=== PATIENT | male | born 1960 | race Caucasian/White ===

== ENCOUNTER 2017-05-11 04:36 | Emergency (ER) | payer OTHER ==
[2017-05-11] MEDS ORDERED: Morphine 10 MG/ML VIAL ONE ×2 (05:07→07:15)
[2017-05-11 05:30] LABS: #Basophils 0.1 thou/uL (0.0-0.2); #Eosinphils 0.4 thou/uL (0.0-0.7); #Lymphocytes 1.9 thou/uL (1.20-3.40); #Monocytes 0.7 thou/uL (0.11-0.59); #Neutrophils 6.3 thou/uL (1.40-6.50); %Basophils 1.5 % (0.0-1.0); %Eosinophils 4.7 % (0.0-10.0); %Lymphocytes 20.4 % (21.0-51.0); %Monocytes 7.5 % (0.0-10.0); %Neutrophils 65.9 % (42.0-75.0); Hemoglobin 14.6 g/dL (14.0-18.0); Mean Corpuscular HGB CONC 33.3 g/dL (32.0-36.0); Mean Corpuscular Hemoglobin 29.9 pg (27.0-31.0); Mean Corpuscular Volume 89.8 fl (80.0-94.0); Mean Platelet Volume 7.4 fL (7.4-10.4); Platelet Count 242 thou/uL (130-400); White Blood Cell (WBC) Count 9.5 thou/uL (4.8-10.8)
[2017-05-11 06:02] LABS: ALT (SGPT) 14 U/L (8-55); AST (SGOT) 36 U/L (5-34); Albumin 3.8 g/dL (3.5-5.0); Alkaline Phosphatase 42 U/L (40-150); Anion Gap 20 mmol/L (10-20); BUN (Urea Nitrogen) 22 mg/dL (8.4-25.7); Bilirubin, Total 0.5 mg/dL (0.2-1.2); Calc. Creatinine Clearance 0 mL/min (70-130); Calcium 9.3 mg/dL (7.8-10.44); Carbon Dioxide 18 mmol/L (22-29); Chloride 104 mmol/L (98-107); Estimated GFR-MDRD 67; Globulin 3.5 g/dL (2.4-3.5); Glucose 318 mg/dL (70-105); Magnesium 2.1 mg/dL (1.6-2.6); Phosphorus 3.4 mg/dL (2.3-4.7); Potassium 4.7 mmol/L (3.5-5.1); Protein, Total 7.3 g/dL (6.0-8.3); Sodium 137 mmol/L (136-145)
[2017-05-11 06:08] LABS: Troponin I 0.631 ng/mL (< 0.028)
[2017-05-11 06:09] LABS: Critical Call Chem Troponin I 0
[2017-05-11] MEDS ORDERED: Enoxaparin Sodium 40 MG/0.4 ML SYRINGE ONE (06:19)
[2017-05-11] MEDS ORDERED: Enoxaparin Sodium 60 MG/0.6 ML SYRINGE ONE (06:19)
[2017-05-11 06:43] LABS: CKMB 5.3 ng/mL (0-6.6)
[2017-05-11] MEDS ORDERED: Furosemide 20 MG/2 ML VIAL ONE (06:47)
--- NOTE | 2017-05-11 08:47 | RAD ---
CHEST 1 VIEW: Date: 05/11/17 HISTORY: Chest pain. COMPARISON: None. FINDINGS: Heart size is enlarged. There is a single lead AICD. Mild pulmonary edema. No pneumothorax. No large effusion. IMPRESSION: Cardiomegaly with mild edema. POS: [facility]
[2017-05-11] MEDS ORDERED: Sodium Chloride 0.9% 100 ML BAG ONE (14:20)
[2017-05-11] MEDS ORDERED: Prasugrel 10 MG TAB ONE (14:20)
== END 2017-05-11 07:55 | disposition short-term general hospital (02) ==
LOC: MADERS 04:36
DX: I21.4 Non-ST elevation (NSTEMI) myocardial infarction (principal); I25.2 Old myocardial infarction; E11.9 Type 2 diabetes mellitus without complications; E78.5 Hyperlipidemia, unspecified; J45.909 Unspecified asthma, uncomplicated; Z79.899 Other long term (current) drug therapy; Z79.4 Long term (current) use of insulin
CPT/HCPCS: 71010; 80053; 80162; 82553; 83735; 83880; 84100; 84443; 84484; 85025; 85730; 93005; 96365; 96366; 96372; 96375; 96376; J0282; J1650; J1940; J2270; J7050; J7070

== ENCOUNTER 2017-09-26 20:54 | Emergency (ER) | payer OTHER, SELFPAY ==
[2017-09-26] MEDS ORDERED: Dextrose 50% Abboject 50 ML SYRINGE ONE (21:18)
[2017-09-26 21:35] LABS: #Eosinphils 0.1 thou/uL (0.0-0.7); #Lymphocytes 0.6 thou/uL (1.20-3.40); #Monocytes 0.7 thou/uL (0.11-0.59); #Neutrophils 7.6 thou/uL (1.40-6.50); %Basophils 0.2 % (0.0-1.0); %Eosinophils 0.8 % (0.0-10.0); %Lymphocytes 6.4 % (21.0-51.0); %Monocytes 8.3 % (0.0-10.0); %Neutrophils 84.2 % (42.0-75.0); Hemoglobin 10.8 g/dL (14.0-18.0); Mean Corpuscular HGB CONC 31.5 g/dL (32.0-36.0); Mean Corpuscular Hemoglobin 29.3 pg (27.0-31.0); Mean Platelet Volume 6.3 fL (7.4-10.4); Platelet Count 203 thou/uL (130-400); RBC Distribution Width 16.7 % (11.5-14.5)
[2017-09-26 21:53] LABS: ALT (SGPT) 25 U/L (8-55); AST (SGOT) 52 U/L (5-34); Albumin 3.4 g/dL (3.5-5.0); Alkaline Phosphatase 21 U/L (40-150); Anion Gap 19 mmol/L (10-20); BUN (Urea Nitrogen) 58 mg/dL (8.4-25.7); Bilirubin, Total 0.6 mg/dL (0.2-1.2); Calc. Creatinine Clearance 0 mL/min (70-130); Calcium 9.3 mg/dL (7.8-10.44); Carbon Dioxide 24 mmol/L (22-29); Chloride 102 mmol/L (98-107); Estimated GFR-MDRD 35; Globulin 3.2 g/dL (2.4-3.5); Glucose 174 mg/dL (70-105); Magnesium 1.8 mg/dL (1.6-2.6); Potassium 4.6 mmol/L (3.5-5.1); Protein, Total 6.6 g/dL (6.0-8.3); Sodium 140 mmol/L (136-145)
[2017-09-26] MEDS ORDERED: Aspirin 325 MG TAB ONE (22:09)
[2017-09-26] MEDS ORDERED: Furosemide 40 MG/4 ML VIAL ONE (22:09)
== END 2017-09-26 23:06 | disposition short-term general hospital (02) ==
LOC: MADERS 20:54
DX: E11.649 Type 2 diabetes mellitus with hypoglycemia without coma (principal); N17.9 Acute kidney failure, unspecified; E87.70 Fluid overload, unspecified; E78.5 Hyperlipidemia, unspecified; J45.909 Unspecified asthma, uncomplicated; R79.89 Other specified abnormal findings of blood chemistry; Z79.899 Other long term (current) drug therapy; Z79.4 Long term (current) use of insulin
CPT/HCPCS: 36416; 80053; 82553; 83735; 83880; 84484; 85025; 93005; 96374; 96375; 36415-59; J1940

== ENCOUNTER 2018-03-08 11:03 | Outpatient (CLI) | payer SELFPAY ==
[~2018-03-08 11:03] MED LIST: Sodium Chloride 0.9% 500 ML BAG ONE
== END 2018-03-08 11:04 | disposition home or self-care (01) ==
LOC: MADER/OP 11:03
PROVIDERS: ATTEND Family Medicine
DX: N17.9 Acute kidney failure, unspecified (principal)
CPT/HCPCS: J7050

== ENCOUNTER 2018-03-20 07:47 | Emergency (ER) | payer SELFPAY ==
[2018-03-20] MEDS ORDERED: Sodium Chloride 0.9% 1,000 ML BAG ONE (14:11)
[2018-03-20] MEDS ORDERED: Calcium Chloride 1 GM/10 ML Abboject SYRINGE ONE (14:11)
[2018-03-20] MEDS ORDERED: EPINEPHrine 1 MG/10 ML Abboject SYRINGE ONE (14:11)
== END 2018-03-20 09:55 | disposition expired ==
LOC: MADERS 07:47
DX: I46.9 Cardiac arrest, cause unspecified (principal); I25.2 Old myocardial infarction; E11.9 Type 2 diabetes mellitus without complications; E78.2 Mixed hyperlipidemia; J45.909 Unspecified asthma, uncomplicated; N18.3 Chronic kidney disease, stage 3 (moderate); Z79.899 Other long term (current) drug therapy; Z79.4 Long term (current) use of insulin
CPT/HCPCS: 96374; 96375; 96376; J0171; J7050